=== PATIENT | female | born 1955 | race Hispanic/Latino ===

== ENCOUNTER 2018-08-26 11:51 | Inpatient (IN) | payer MEDICARE, BC ==
[2018-08-26] MEDS ORDERED: Sodium Chloride 0.9% 1,000 ML IV ONE (13:06)
--- NOTE | 2018-08-26 13:16 | C.PDOC ---
History Of Present Illness 63 year old female with PMH of HTN, diabetes presents to ED with complaint of worsening abdominal pain for the past 3 days. Pain is sharp and located on the right side of the abdomen, worst in RLQ. Patient has never experienced pain like this before. She took 3 ibuprofen for the pain with no improvement yesterday. Her last bowel movement was normal and non-bloody this morning. Tolerating PO per baseline. No recent travel. Patient denies trauma/injury, fever, chills, nausea, vomiting, diarrhea, urinary symptoms, back pain, chest pain, SOB, palpitations, or any other associated symptoms. Time Seen by Provider: 08/26/18 12:40 Chief Complaint (Nursing): Abdominal Pain History Per: Patient History/Exam Limitations: no limitations Onset/Duration Of Symptoms: Days (3), Worse Since Current Symptoms Are (Timing): Still Present Location Of Pain/Discomfort: RLQ Quality Of Discomfort: "Pain" Associated Symptoms: denies: Fever, Chills, Nausea, Vomiting, Diarrhea, Back Pain, Urinary Symptoms Past Medical History Reviewed: Historical Data, Nursing Documentation, Vital Signs Vital Signs: Last Vital Signs Temp 97.9 F 08/26/18 12:08 Pulse 74 08/26/18 12:08 Resp 18 08/26/18 12:08 BP 178/80 H 08/26/18 12:08 Pulse Ox 99 08/26/18 12:08 - Medical History PMH: Diabetes, HTN Surgical History: No Surg Hx Family History: States: Unknown Family Hx - Social History Hx Alcohol Use: No Hx Substance Use: No - Immunization History Hx Tetanus Toxoid Vaccination: No Hx Influenza Vaccination: No Hx Pneumococcal Vaccination: No Review Of Systems Constitutional: Negative for: Fever, Chills, Weakness Eyes: Negative for: Vision Change ENT: Negative for: Nose Congestion, Throat Pain Cardiovascular: Negative for: Chest Pain, Palpitations, Light Headedness Respiratory: Negative for: Cough, Shortness of Breath Gastrointestinal: Positive for: Abdominal Pain (right lower quadrant). Negative for: Nausea, Vomiting, Diarrhea, Hematochezia Genitourinary: Negative for: Dysuria, Frequency Musculoskeletal: Negative for: Back Pain Skin: Negative for: Rash, Bruising Neurological: Negative for: Weakness, Numbness, Headache, Dizziness Physical Exam - Physical Exam Appears: Non-toxic, In Acute Distress (secondary to pain), Other (moderate distress) Skin: Normal Color, Warm, Dry Head: Atraumatic, Normacephalic Eye(s): bilateral: Normal Inspection, PERRL, EOMI Oral Mucosa: Moist Neck: Normal ROM, Supple Chest: Symmetrical, No Deformity Cardiovascular: Rhythm Regular Respiratory: Normal Breath Sounds, No Accessory Muscle Use Gastrointestinal/Abdominal: Bowel Sounds, Soft, Tenderness (right lower bimal ndrant and suprapubic area ), No Distention, Guarding, Rebound, No Other (no bruising) Back: Normal Inspection, No CVA Tenderness, No Vertebral Tenderness, No Decreased ROM, No Paraspinal Tenderness Extremity: Normal ROM, Capillary Refill (<2 seconds) Extremity: Bilateral: Atraumatic, Normal Color And Temperature, Normal ROM Pulses: Left Radial: Normal, Right Radial: Normal Neurological/Psych: Oriented x3, Normal Speech, Normal Cognition, Normal Motor, Normal Sensation Gait: Steady ED Course And Treatment - Laboratory Results Result Diagrams: 08/26/18 13:34 08/26/18 13:34 ECG: Viewed By Me ECG Rhythm: Sinus Rhythm Interpretation Of ECG: Rate 65; NSR; Normal Intervals; No STEMI or other signs of acute ischemia Rate From EC O2 Sat by Pulse Oximetry: 99 (RA) Pulse Ox Interpretation: Normal - Radiology CXR: Viewed By Me CXR Interpretation: Yes: No Acute Disease - CT Scan/US CT Abdomen/Pelvis Other Rad Studies (CT/US): Interpreted By Me, Read By Radiologist CT/US Interpretation: Evelyn. Patient NameLIJEAN CLAUDE MARTIN / [id number], Hemali MD. Study [id number] 15:54:48Transcriber. Sex / AgeF / [id number] Rosa MD. [facility] WoodburyApproval [id number] 16:31:10. My Comment. Study Comments. Report. Date of service: 08/26/2018. PROCEDURE: CT Abdomen and Pelvis with contrast. HISTORY: Abdominal pain. COMPARISON: None available. TECHNIQUE: CT scan of the abdomen and pelvis was performed after administration of intravenous contrast. Oral contrast was not administered. Coronal and sagittal reformatted images were obtained. Contrast dose: 100 mL Visipaque 320. Radiation dose: Total exam DLP = 1183.06 mGy-cm. This CT exam was performed using one or more of the following dose reduction techniques: Automated exposure control, adjustment of the mA and/or kV according to patient size, and/or use of iterative reconstruction technique. FINDINGS: LOWER THORAX: There is depe ndent atelectasis in the lung bases. There are atherosclerotic calcifications in the coronary arteries and visualized descending aorta. LIVER: Normal in size with homogeneous enhancement. Diffuse fatty liver. No gross lesion or ductal dilatation. GALLBLADDER AND BILE DUCTS: Well distended. No calcified gallstones, wall thickening or pericholecystic fluid. PANCREAS: Normal in size with homogeneous enhancement. No gross lesion or ductal dilatation. SPLEEN: Normal in size and appearance. ADRENALS: No discrete nodule. KIDNEYS AND URETERS: Normal in size with homogeneous enhancement. No hydronephrosis. No solid mass. There is a 4 mm round calcification in the upper pole of the right kidney which may represent brunch artery aneurysm or nonspecific calcification. Tiny low-attenuation lesions in both kidneys are too small to characterize by CT criteria. There is a 2.0 cm simple cyst in the lower pole of the left kidney posteriorly. VASCULATURE: No aortic aneurysm. There are no aortic atherosclerotic calcifications or mural plaque present. BOWEL: Evaluation of the bowel is limited in the absence of oral contrast. The small bowel loops are normal in caliber. There is moderate amount of stool in the ascending and transverse colon. There are few left colonic diverticula without CT evidence for acute diverticulitis.. No bowel wall thickening or obstruction. APPENDIX: Normal appendix. PERITONEUM: No free fluid. No free air. LYMPH NODES: No enlarged lymph nodes. BLADDER: Grossly normal in appearance. REPRODUCTIVE: The uterus is normal in size. BONES: No acute fracture. There is diffuse bone demineralization and multilevel degenerative changes in the spine. OTHER FINDINGS: There is a large acute right rectus sheath hematoma measuring 17.6 x 11.4 x 10.1 cm. The hematoma extends posteriorly into the right hemipelvis. There is small hemorrhagic fluid and reactive changes in the right valarie pelvis and mild mass effect on the right lateral wall of the urinary bladder. IMPRESSION: 1. Large acute right rectus sheath hematoma with posterior extension into the right hemipelvis and mild mass effect on the right lateral urinary bladder wall. 2. Additional comments as described above. Critical findings were discussed with LINDA Tabares on 08/26/2018 at 4:20 p.m. Medical Decision Making Medical Decision Making: Plan: * Bloodwork * Lipase, Troponin * Coags * UA * EKG * CXR * Ct Abd/Pelvis with IV contrast * Transvaginal US Labwork reviewed, unremarkable EKG shows no acute changes CXR shows no active disease Patient reports decreased pain with medication 1630 CT results reviewed, shows large right sided rectus sheath hematoma. Pt and family made aware of findings, will seek admission and general surgery consult. TV US consistent with right hematoma; ovaries non visualized [address] Green, surgery oncall, who states he will come to evaluate patient in ED. 1745 Dr. Green examined patient at bedside, states he will take patient to OR tomorrow for drainage. Requests NPO after midnight. [address] Couch, medicine buckle and button maker, regarding patient. Agreed to admit patient to med/surg floor with diagnosis of rectus sheath hematoma. Patient made aware of change in disposition. Resting comfortably in stretcher with stable vital signs at this time. Disposition Counseled Patient/Family Regarding: Studies Performed, Diagnosis - Disposition Disposition: HOSPITALIZED Disposition Time: 18:00 Condition: STABLE - Clinical Impression Clinical Impression: Rectus sheath hematoma - PA / SHEET FINISHER / Resident Statement MD/DO has reviewed & agrees with the documentation as recorded. (Aga Don) - Scribe Statement The provider has reviewed the documentation as recorded by the Scribe (Aga Don) All medical record entries made by the Scribe were at my direction and personally dictated by me. I have reviewed the chart and agree that the record accurately reflects my personal performance of the history, physical exam, medical decision making, and the department course for this patient. I have also personally directed, reviewed, and agree with the discharge instructions and disposition.
[2018-08-26] MEDS ORDERED: Sodium Chloride 0.9% 1,000 ML ONE (13:21)
[2018-08-26 13:40] LABS: BASO # 0.1 K/uL (0.0-0.2); BASO % 1.1 % (0.0-2.0); EOS # 0.1 K/uL (0.0-0.7); EOS % 0.7 % (0.0-4.0); HEMOGLOBIN 14.8 g/dL (11.0-16.0); LYMPH # 1.5 K/uL (1.0-4.3); LYMPH % 16.8 % (20.0-40.0); MEAN CELL VOLUME 93.4 fL (81.0-99.0); MEAN CORPUSCULAR HEMOGLOBIN 31.8 pg (27.0-31.0); MEAN CORPUSCULAR HGB CONC 34.1 g/dL (33.0-37.0); MEAN PLATELET VOLUME 8.6 fL (7.2-11.7); MONO # 0.6 K/uL (0.0-0.8); MONO % 6.3 % (0.0-10.0); NEUT # 6.9 K/uL (1.8-7.0); NEUT % 75.1 % (50.0-75.0); RBC 4.64 Mil/uL (3.80-5.20); RED CELL DISTRIBUTION WIDTH 13.3 % (11.5-14.5); WHITE BLOOD COUNT 9.2 K/uL (4.8-10.8)
[2018-08-26 13:48] LABS: INR 1.1; PROTHROMBIN TIME 11.9 SECONDS (9.7-12.2)
[2018-08-26 13:53] LABS: ALB/GLOB RATIO 1.5 (1.0-2.1); ALBUMIN 4.5 g/dL (3.5-5.0); BLOOD UREA NITROGEN 20 mg/dL (7-17); GFR NON-AFRICAN AMERICAN > 60; LIPASE 206 U/L (23-300)
[2018-08-26 13:56] LABS: ALT/SGPT 31 U/L (9-52); AST/SGOT 45 U/L (14-36)
[2018-08-26 13:59] LABS: SQUAMOUS EPITHIAL < 1 /hpf (0-5); URINE BILIRUBIN NEGATIVE (NEGATIVE); URINE BLOOD NEGATIVE (NEGATIVE); URINE CLARITY Hazy (Clear); URINE COLOR Amber (YELLOW); URINE GLUCOSE (UA) 3+ mg/dL (Normal); URINE LEUKOCYTE ESTERASE NEG Leu/uL (Negative); URINE PROTEIN NEGATIVE (NEGATIVE); URINE UROBILINOGEN NORMAL mg/dL (0.2-1.0)
--- NOTE | 2018-08-26 16:34 | CT ---
Date of service: 08/26/2018 PROCEDURE: CT Abdomen and Pelvis with contrast HISTORY: Abdominal pain COMPARISON: None available. TECHNIQUE: CT scan of the abdomen and pelvis was performed after administration of intravenous contrast. Oral contrast was not administered. Coronal and sagittal reformatted images were obtained. Contrast dose: 100 mL Visipaque 320 Radiation dose: Total exam DLP = 1183.06 mGy-cm. This CT exam was performed using one or more of the following dose reduction techniques: Automated exposure control, adjustment of the mA and/or kV according to patient size, and/or use of iterative reconstruction technique. FINDINGS: LOWER THORAX: There is dependent atelectasis in the lung bases. There are atherosclerotic calcifications in the coronary arteries and visualized descending aorta. LIVER: Normal in size with homogeneous enhancement. Diffuse fatty liver. No gross lesion or ductal dilatation. GALLBLADDER AND BILE DUCTS: Well distended. No calcified gallstones, wall thickening or pericholecystic fluid. PANCREAS: Normal in size with homogeneous enhancement. No gross lesion or ductal dilatation. SPLEEN: Normal in size and appearance. ADRENALS: No discrete nodule. KIDNEYS AND URETERS: Normal in size with homogeneous enhancement. No hydronephrosis. No solid mass. There is a 4 mm round calcification in the upper pole of the right kidney which may represent brunch artery aneurysm or nonspecific calcification. Tiny low-attenuation lesions in both kidneys are too small to characterize by CT criteria. There is a 2.0 cm simple cyst in the lower pole of the left kidney posteriorly. VASCULATURE: No aortic aneurysm. There are no aortic atherosclerotic calcifications or mural plaque present. BOWEL: Evaluation of the bowel is limited in the absence of oral contrast. The small bowel loops are normal in caliber. There is moderate amount of stool in the ascending and transverse colon. There are few left colonic diverticula without CT evidence for acute diverticulitis.. No bowel wall thickening or obstruction. APPENDIX: Normal appendix. PERITONEUM: No free fluid. No free air. LYMPH NODES: No enlarged lymph nodes. BLADDER: Grossly normal in appearance. REPRODUCTIVE: The uterus is normal in size. BONES: No acute fracture. There is diffuse bone demineralization and multilevel degenerative changes in the spine. OTHER FINDINGS: There is a large acute right rectus sheath hematoma measuring 17.6 x 11.4 x 10.1 cm. The hematoma extends posteriorly into the right hemipelvis. There is small hemorrhagic fluid and reactive changes in the right valarie pelvis and mild mass effect on the right lateral wall of the urinary bladder. IMPRESSION: 1. Large acute right rectus sheath hematoma with posterior extension into the right hemipelvis and mild mass effect on the right lateral urinary bladder wall. 2. Additional comments as described above. Critical findings were discussed with LINDA Tabares on 08/26/2018 at 4:20 p.m.
--- NOTE | 2018-08-26 17:01 | US ---
Date of service: 08/26/2018 HISTORY: RLQ pain, r/o torsion COMPARISON: None available. TECHNIQUE: Transabdominal and transvaginal pelvic ultrasound was performed. FINDINGS: UTERUS: Measures 7.1 x 3.4 x 4.0 cm. Anteverted, normal in size and appearance. No fibroid or other mass lesion seen. ENDOMETRIUM: Measures 3.4 mm in diameter. Unremarkable. CERVIX: No cervical abnormality identified. RIGHT OVARY: Not visualized. LEFT OVARY: Not visualized. FREE FLUID: There is small amount of free fluid in the cul de sac. OTHER FINDINGS: There is a large heterogeneous predominantly hyperechoic mass in the right adnexa. IMPRESSION: No evidence for fibroid uterus. Both ovaries are not visualized. Large heterogeneous mass in the right adnexa which in correlation with the CT scan is compatible with right rectus sheath hematoma with extension into the right hemipelvis.
--- NOTE | 2018-08-26 18:23 | RAD ---
Date of service: 08/26/2018 HISTORY: abdominal pain COMPARISON: No prior. FINDINGS: LUNGS: The lungs are well inflated and clear. PLEURA: No pleural effusions or pneumothorax. CARDIOVASCULAR: The heart is normal in size. No aortic atherosclerotic calcifications present. OSSEOUS STRUCTURES: Within normal limits for the patient's age. VISUALIZED UPPER ABDOMEN: Normal. OTHER FINDINGS: None. IMPRESSION: No active pulmonary disease.
[2018-08-26] MEDS: Sodium Chloride 0.9% 1,000 ML IV SCH (19:29)
[2018-08-27] MEDS: Sodium Chloride 0.9% 1,000 ML IV SCH ×3 (07:41→21:44)
[2018-08-27] MEDS: Vitamin B Complex/Vitamin C Tab PO SCH (09:24)
[2018-08-27] MEDS: Multiple Vitamins Tab PO SCH (09:24)
[2018-08-27] MEDS: Calcium-Vit D 500 mg-200 Units Tab UD PO SCH (09:24)
[2018-08-27] MEDS ORDERED: Metoprolol Succinate 100 mg XL Tab PO SCH (10:00)
[2018-08-27] MEDS ORDERED: Pneumococcal 23-Valent Vaccine IM ONE (11:23)
[2018-08-27] MEDS ORDERED: Midazolam 2 MG/2 ML VIAL ONE (14:59)
[2018-08-27] MEDS ORDERED: Propofol 10 mg/ml Inj (20 ML) ONE (14:59)
[2018-08-27] MEDS ORDERED: ceFAZolin 1 gm in NS 2 GM/200 ML BAG IVPB ONE (15:16)
[2018-08-27] MEDS ORDERED: ePHEDrine 50 mg/ml Inj ONE (15:25)
[2018-08-27] MEDS ORDERED: Oxycodone/Acetaminophen 5/325 mg Tab PO PRN (15:59)
[2018-08-27] MEDS ORDERED: HYDROmorphone 0.5 mg/0.5 ml ISec IVP PRN (16:26)
[2018-08-27] MEDS ORDERED: HYDROmorphone 0.5 mg/0.5 ml ISec ONE (16:33)
[2018-08-27] MEDS: ceFAZolin 1 GM in Sodium Chloride 0.9% 100 ML IVPB SCH (17:26)
--- NOTE | 2018-08-27 20:51 | CP.PCM.HP ---
Present on Admission - Present on Admission Any Indicators Present on Admission: No Past Patient History - Past Medical History & Family History Past Medical History?: Yes - Past Social History Smoking Status: Unknown If Ever Smoked - CARDIAC Hx Hypertension: Yes - ENDOCRINE/METABOLIC Hx Diabetes Mellitus Type 2: Yes - MUSCULOSKELETAL/RHEUMATOLOGICAL Hx Falls: No - PSYCHIATRIC Hx Substance Use: No - SURGICAL HISTORY Hx Surgeries: No - ANESTHESIA Hx Anesthesia: No Meds Allergies/Adverse Reactions: Allergies Allergy/AdvReac Type Severity Reaction Status Date / Time No Known Allergies Allergy Verified 08/26/18 12:11 Results - Vital Signs Recent Vital Signs: Last Vital Signs Temp 97.9 F 08/27/18 17:11 Pulse 97 H 08/27/18 17:11 Resp 18 08/27/18 17:11 BP 127/70 08/27/18 17:11 Pulse Ox 95 08/27/18 17:11 - Labs Result Diagrams: 08/26/18 13:34 08/26/18 13:34 Labs: Laboratory Results - last 24 hr 08/26/18 08/26/18 08/27/18 20:02 21:15 07:11 POC Glucose (mg/dL) 146 H 129 H Blood Type A POSITIVE Antibody Screen Negative 08/27/18 08/27/18 11:15 16:44 POC Glucose (mg/dL) 126 H 111 H Blood Type Antibody Screen
[2018-08-27] MEDS: Metoprolol Succinate 100 mg XL Tab PO SCH (21:34)
--- NOTE | 2018-08-27 21:49 | CARD ---
APPROVED REPORT Date of service: 08/26/2018 EKG Measurement Heart [id number] <Conclusion> Normal sinus rhythm Minimal voltage criteria for LVH, may be normal variant Borderline ECG
[2018-08-28] MEDS: ceFAZolin 1 GM in Sodium Chloride 0.9% 100 ML IVPB SCH ×3 (01:26→16:27)
--- NOTE | 2018-08-28 02:53 | OP ---
PROCEDURE DATE: 08/27/2018 PREOPERATIVE DIAGNOSIS: Right rectus sheath and retroperitoneal hematoma. POSTOPERATIVE DIAGNOSIS: Right rectus sheath and retroperitoneal hematoma. PROCEDURE PERFORMED: Drainage of right retroperitoneal and pelvic hematoma. SURGEON: Omar Green MD. ANESTHESIA: General. BLOOD LOSS: 30 mL. POSTOPERATIVE CONDITION: Stable. INDICATIONS FOR SURGERY: This is a 63-year-old female admitted with abdominal and pelvic pain, found to have a large retroperitoneal and pelvic hematoma which was pressing on her bladder and in need of operative drainage. She is now brought to the operating room. DESCRIPTION OF PROCEDURE: The patient taken to the operating room. General anesthesia was administered. Lower abdomen was prepped and draped. A transverse incision was made in the right lower quadrant through a previous incision. The rectus sheath was identified, opened and a large hematoma was entered and drained. It was noted to extend deep into the pelvis with an intraperitoneal portion. The wound was irrigated with copious amounts of saline solution. The bleeding blood vessel was repaired. A partial tissue flap closure was performed at the periphery and the central portion of the wound was packed open with wet saline gauze. This included gauze into the pelvic space. The plan was to take the patient back to the operating room tomorrow for a washout and possible drain placement. The patient tolerated the procedure well, returned to recovery room in stable condition. Omar Green MD
--- NOTE | 2018-08-28 03:01 | HP ---
CHIEF COMPLAINT: Right lower quadrant abdominal pain. HISTORY OF PRESENT ILLNESS: This is a 63-year-old white female with history of diabetes, hypertension, and hyperlipidemia. She is compliant with diet, medication, and followup, and the patient developed abdominal pain three days ago, which is mostly in the right lower quadrant. According to the patient, pain has been getting worse over the last three days, mostly in the right lower quadrant, and the patient's pain is worse. It is more intense. She took three ibuprofen on the day of admission with no improvement, and she had a normal bowel movement which has no blood, no fever, no chills, no nausea, vomiting, or diarrhea. She denies any dysuria, hematuria, or pyuria. She has headache. She denied any fever or chills. There is no history of cough or sore throat. She is vague, but she said she had a fall from a chair, but she does not remember any injuries. There is no history of rectal bleeding, hematemesis, melena, or fever. ALLERGIES: UNKNOWN ALLERGIES. CURRENT MEDICATIONS: At home are Toprol-XL, doxepin, multivitamin, calcium, aspirin, metformin, Hyzaar, and Invokana. SOCIAL HISTORY: She is nonsmoker, non-ETOH user. PHYSICAL EXAMINATION: GENERAL: An elderly female in distress with right lower quadrant pain. VITAL SIGNS: Blood pressure 136/58, pulse 92, respiratory rate 18, and temperature 98.8. SKIN: No rashes. No bruises. No purpura. HEENT: Atraumatic and normocephalic. Negative pallor. Negative jaundice. Extraocular movements are intact. NECK: Supple. No JVD. No lymph nodes. No thyromegaly. No carotid bruit. CHEST: Chest wall, bilateral symmetrical expansion. No tenderness. No deformity. LUNGS: Clear. No rales. No rhonchi. CARDIOVASCULAR SYSTEM: PMI not localized. S1 and S2, regular. No heave. No thrill. ABDOMEN: Soft, nontender. There is right lower quadrant mass. RECTAL AND PELVIC: Deferred. EXTREMITIES: No clubbing, cyanosis, or edema. CENTRAL NERVOUS SYSTEM: Awake, alert, and oriented x3. ASSESSMENT: 1. Right lower quadrant abdominal pain which turned out to be a hematoma. Etiology is unclear. She is on aspirin. 2. Hypertension, poorly controlled. 3. Diabetes. PLAN: Admit. Surgical evaluation. Monitor the patient. Jr Couch MD
[2018-08-28] MEDS: Vitamin B Complex/Vitamin C Tab PO SCH (09:10)
[2018-08-28] MEDS: Multiple Vitamins Tab PO SCH (09:11)
[2018-08-28] MEDS: Calcium-Vit D 500 mg-200 Units Tab UD PO SCH (09:12)
[2018-08-28] MEDS ORDERED: Pneumococcal 23-Valent Vaccine IM ONE (10:00)
[2018-08-28] MEDS ORDERED: Influenza Vaccine 60 mcg/0.5 mL SYR (4YR UP) IM ONE (10:00)
[2018-08-28] MEDS: Sodium Chloride 0.9% 1,000 ML IV SCH ×3 (10:40→23:44)
[2018-08-28] MEDS ORDERED: Propofol 10 mg/ml Inj (20 ML) ONE (15:55)
[2018-08-28] MEDS ORDERED: ceFAZolin 1 gm in NS 1 GM/100 ML BAG IVPB ONE (16:28)
[2018-08-28] MEDS: Metoprolol Succinate 100 mg XL Tab PO SCH (21:23)
[2018-08-28] MEDS: DOXEPIN 6 MG PO SCH (21:24)
--- NOTE | 2018-08-28 22:41 | CP.PCM.PN ---
Subjective - Date & Time of Evaluation Date of Evaluation: 08/28/18 Time of Evaluation: 12:00 - Subjective Subjective: dictated Objective - Vital Signs/Intake and Output Vital Signs (last 24 hours): Temp Pulse Resp BP Pulse Ox 98.5 F 94 H 17 134/59 L 95 08/28/18 17:45 08/28/18 17:45 08/28/18 17:45 08/28/18 17:45 08/28/18 17:45 Intake and Output: 08/28/18 08/29/18 18:59 06:59 Intake Total 1600 Output Total 700 Balance 900 - Medications Medications: Current Medications Ascorbic Acid (Vitamin C 500 Mg Tab) 500 mg PO BID [facility] Last Admin: 08/28/18 21:23 Dose: Not Given Aspirin (Aspirin Chewable) 81 mg PO DAILY [facility] Last Admin: 08/28/18 09:10 Dose: Not Given Calcium/Vitamin D (Oyster Shell Calcium/Vitamin D 500 Mg-200 Iu) 1 tab PO DAILY [facility] Last Admin: 08/28/18 09:12 Dose: Not Given Docusate Sodium (Colace) 100 mg PO BID [facility] Last Admin: 08/28/18 21:22 Dose: Not Given Heparin Sodium (Porcine) (Heparin) 5,000 units SC Q12 [facility] Last Admin: 08/28/18 21:26 Dose: 5,000 units Home Med (Patient's Own Medication) 1 tab PO HS [facility] Last Admin: 08/28/18 21:24 Dose: 1 tab Hydromorphone HCl (Dilaudid) 0.5 mg IVP Q15M PRN PRN Reason: Pain, severe (8-10) Last Admin: 08/27/18 16:33 Dose: 0.5 mg Sodium Chloride (Sodium Chloride 0.9%) 1,000 mls @ 100 mls/hr IV .Q10H [facility] Last Admin: 08/28/18 10:40 Dose: 100 mls/hr Cefazolin Sodium 1 gm/ Sodium (Chloride) 100 mls @ 100 mls/hr IVPB Q8H [facility]; Protocol Last Admin: 08/28/18 16:27 Dose: 100 mls Lactated Ringer's (Lactated Ringer's) 1,000 mls @ 100 mls/hr IV .Q10H [facility] Losartan Potassium (Cozaar) 100 mg PO DAILY [facility] Last Admin: 08/28/18 09:13 Dose: Not Given Metformin HCl (Glucophage) 1,000 mg PO BIDCC [facility] Last Admin: 08/28/18 21:22 Dose: Not Given Metoprolol Succinate (Toprol Xl) 100 mg PO HS [facility] Last Admin: 08/28/18 21:23 Dose: 100 mg Morphine Sulfate (Morphine) 2 mg IVP Q4 PRN PRN Reason: Pain, moderate (4-7) Last Admin: 08/28/18 10:50 Dose: 2 mg Multivitamins (Hexavitamin) 1 tab PO DAILY [facility] Last Admin: 08/28/18 09:11 Dose: Not Given Oxycodone/Acetaminophen (Percocet 5/325 Mg Tab) 2 tab PO Q4H PRN PRN Reason: pain Stop: 08/30/18 16:00 Rosuvastatin Calcium (Crestor) 10 mg PO HS [facility] Last Admin: 08/28/18 21:23 Dose: 10 mg Vitamin B Complex/Vitamin C (Berocca) 1 tab PO DAILY [facility] Last Admin: 08/28/18 09:10 Dose: Not Given - Labs Labs: 08/26/18 13:34 08/26/18 13:34 PT 11.9 SECONDS (9.7-12.2) 08/26/18 13:34 INR 1.1 08/26/18 13:34 APTT 29 SECONDS (21-34) 08/26/18 13:34
[2018-08-28] MEDS: Lactated Ringer's 1,000 ML IV SCH (23:45)
--- NOTE | 2018-08-29 01:29 | OP ---
PROCEDURE DATE: 08/28/2018 PREOPERATIVE DIAGNOSIS: Extensive retroperitoneal hematoma. POSTOPERATIVE DIAGNOSIS: Extensive retroperitoneal hematoma. PROCEDURE PERFORMED: Re-drainage of retroperitoneal hematoma with debridement, repair of blood vessel, pulse irrigation and partial advancement flap closure. SURGEON: Omar Green MD ANESTHESIA: General. BLOOD LOSS: 100 mL. POSTOPERATIVE CONDITION: Stable. INDICATION FOR SURGERY: A 63-year-old female who had an extensive right retroperitoneal hematoma which was causing severe pain, pressing on the patient's bladder and was deemed necessary to be drained in open fashion. She underwent open drainage yesterday with a packing. Today, she was taken back to the operating room for staged procedure, change of the packing, pulse irrigation and debridement. DESCRIPTION OF PROCEDURE: The patient was taken to the operating room. General anesthesia was administered. The abdomen was prepped and draped. After the previous packing was removed, the wound was pulse irrigated and debrided. Bleeding was controlled using the Bovie. Larger blood vessels were repaired. A partial tissue flap closure was performed at the periphery. Central portion of wound was packed with wet saline gauze and dressed sterilely. The patient tolerated the procedure well and returned to recovery room in stable condition. Omar Green MD
[2018-08-29] MEDS: ceFAZolin 1 GM in Sodium Chloride 0.9% 100 ML IVPB SCH ×3 (04:01→16:44)
[2018-08-29] MEDS: Lactated Ringer's 1,000 ML IV SCH ×5 (04:02→23:50)
--- NOTE | 2018-08-29 05:27 | PN ---
DATE: 08/28/2018 SUBJECTIVE: The patient is afebrile. She is status post OR. No chest pain. No nausea or vomiting. Some postop pain, she is for OR again in a.m. PHYSICAL EXAMINATION: VITAL SIGNS: Blood pressure is 134/59, pulse 94, respiratory rate 17, temperature 98.5. LUNGS: air entry. CARDIOVASCULAR SYSTEM: S1 and S2, regular. ABDOMEN: Soft. ASSESSMENT: Right lower quadrant hematoma. PLAN: OR in a.m. Monitor the patient. Jr Couch MD
[2018-08-29 07:04] LABS: BASO % 0.5 % (0.0-2.0); EOS # 0.2 K/uL (0.0-0.7); EOS % 2.2 % (0.0-4.0); LYMPH # 1.5 K/uL (1.0-4.3); LYMPH % 21.3 % (20.0-40.0); MEAN CORPUSCULAR HEMOGLOBIN 31.3 pg (27.0-31.0); MEAN CORPUSCULAR HGB CONC 33.3 g/dL (33.0-37.0); MONO # 0.8 K/uL (0.0-0.8); MONO % 10.5 % (0.0-10.0); NEUT # 4.7 K/uL (1.8-7.0); NEUT % 65.5 % (50.0-75.0); RBC 3.4 Mil/uL (3.80-5.20); RED CELL DISTRIBUTION WIDTH 13.2 % (11.5-14.5); WHITE BLOOD COUNT 7.1 K/uL (4.8-10.8)
[2018-08-29 07:20] LABS: ALB/GLOB RATIO 1.2 (1.0-2.1); ALBUMIN 3.1 g/dL (3.5-5.0); ALT/SGPT 23 U/L (9-52); AST/SGOT 25 U/L (14-36); BLOOD UREA NITROGEN 11 mg/dL (7-17); CALCIUM 8.1 mg/dl (8.6-10.4); GFR NON-AFRICAN AMERICAN > 60
[2018-08-29 07:29] LABS: HEMOGLOBIN 10.6 g/dL (11.0-16.0)
[2018-08-29] MEDS: Vitamin B Complex/Vitamin C Tab PO SCH (09:05)
[2018-08-29] MEDS: Calcium-Vit D 500 mg-200 Units Tab UD PO SCH (09:06)
[2018-08-29] MEDS: Multiple Vitamins Tab PO SCH (09:42)
[2018-08-29] MEDS ORDERED: Propofol 10 mg/ml Inj (20 ML) ONE (13:48)
[2018-08-29] MEDS ORDERED: Midazolam 2 MG/2 ML VIAL ONE (13:48)
[2018-08-29] MEDS ORDERED: HYDROmorphone 0.5 mg/0.5 ml ISec IVP PRN (14:58)
--- NOTE | 2018-08-29 20:47 | CP.PCM.PN ---
Subjective - Date & Time of Evaluation Date of Evaluation: 08/29/18 Time of Evaluation: 07:20 - Subjective Subjective: dictated Objective - Vital Signs/Intake and Output Vital Signs (last 24 hours): Temp Pulse Resp BP Pulse Ox 99.2 F 78 17 135/59 L 98 08/29/18 15:40 08/29/18 15:40 08/29/18 15:40 08/29/18 15:40 08/29/18 15:40 Intake and Output: 08/29/18 08/30/18 18:59 06:59 Intake Total 700 Output Total 100 Balance 600 - Medications Medications: Current Medications Ascorbic Acid (Vitamin C 500 Mg Tab) 500 mg PO BID [facility] Last Admin: 08/29/18 18:02 Dose: 500 mg Aspirin (Aspirin Chewable) 81 mg PO DAILY [facility] Last Admin: 08/29/18 09:05 Dose: Not Given Calcium/Vitamin D (Oyster Shell Calcium/Vitamin D 500 Mg-200 Iu) 1 tab PO DAILY [facility] Last Admin: 08/29/18 09:06 Dose: Not Given Docusate Sodium (Colace) 100 mg PO BID [facility] Last Admin: 08/29/18 18:02 Dose: 100 mg Heparin Sodium (Porcine) (Heparin) 5,000 units SC Q12 [facility] Last Admin: 08/29/18 09:06 Dose: Not Given Home Med (Patient's Own Medication) 1 tab PO HS [facility] Last Admin: 08/28/18 21:24 Dose: 1 tab Hydromorphone HCl (Dilaudid) 0.5 mg IVP Q15M PRN PRN Reason: Pain, severe (8-10) Last Admin: 08/27/18 16:33 Dose: 0.5 mg Cefazolin Sodium 1 gm/ Sodium (Chloride) 100 mls @ 100 mls/hr IVPB Q8H [facility]; Protocol Last Admin: 08/29/18 16:44 Dose: 100 mls/hr Lactated Ringer's (Lactated Ringer's) 1,000 mls @ 100 mls/hr IV .Q10H [facility] Last Admin: 08/29/18 13:00 Dose: Not Given Lactated Ringer's (Lactated Ringer's) 1,000 mls @ 150 mls/hr IV .Q6H40M [facility] Last Admin: 08/29/18 16:40 Dose: 150 mls/hr Losartan Potassium (Cozaar) 100 mg PO DAILY [facility] Last Admin: 08/29/18 09:07 Dose: Not Given Metformin HCl (Glucophage) 1,000 mg PO BIDCC [facility] Last Admin: 08/29/18 18:02 Dose: 1,000 mg Metoprolol Succinate (Toprol Xl) 100 mg PO HS [facility] Last Admin: 08/28/18 21:23 Dose: 100 mg Morphine Sulfate (Morphine) 2 mg IVP Q4 PRN PRN Reason: Pain, moderate (4-7) Last Admin: 08/29/18 10:43 Dose: 2 mg Multivitamins (Hexavitamin) 1 tab PO DAILY [facility] Last Admin: 08/29/18 09:42 Dose: Not Given Oxycodone/Acetaminophen (Percocet 5/325 Mg Tab) 2 tab PO Q4H PRN PRN Reason: pain Stop: 08/30/18 16:00 Rosuvastatin Calcium (Crestor) 10 mg PO [facility] Last Admin: 08/28/18 21:23 Dose: 10 mg Vitamin B Complex/Vitamin C (Berocca) 1 tab PO DAILY [facility] Last Admin: 08/29/18 09:05 Dose: Not Given - Labs Labs: 08/29/18 06:51 08/29/18 06:51 PT 11.9 SECONDS (9.7-12.2) 08/26/18 13:34 INR 1.1 08/26/18 13:34 APTT 29 SECONDS (21-34) 08/26/18 13:34
[2018-08-29] MEDS: Metoprolol Succinate 100 mg XL Tab PO SCH (21:24)
[2018-08-29] MEDS: DOXEPIN 6 MG PO SCH (21:25)
--- NOTE | 2018-08-30 00:02 | PN ---
DATE: 08/29/2018 SUBJECTIVE: The patient is feeling better. She has insomnia. No shortness of breath. No chest pain. Status post OR. No cough. No fever. PHYSICAL EXAMINATION: VITAL SIGNS: Afebrile. Blood pressure 135/59, pulse 78, respiratory rate 17, and temperature 99.2. LUNGS: Clear. CARDIOVASCULAR SYSTEM: S1 and S2. Regular. ABDOMEN: Postop. ASSESSMENT: 1. Right lower quadrant hematoma, status post evacuation. 2. Hypertension. 3. Diabetes. 4. Hyperlipidemia. PLAN: Continue postop care. Monitor the patient. Jr Couch MD
[2018-08-30] MEDS: ceFAZolin 1 GM in Sodium Chloride 0.9% 100 ML IVPB SCH ×3 (01:52→17:23)
[2018-08-30] MEDS: Lactated Ringer's 1,000 ML IV SCH (05:06)
[2018-08-30] MEDS ORDERED: Propofol 10 mg/ml Inj (20 ML) ONE (08:47)
[2018-08-30] MEDS ORDERED: Bacitracin Ointment 30 GM TUBE ONE (09:22)
[2018-08-30] MEDS ORDERED: Lactated Ringer's 1,000 ML IV SCH (09:45)
[2018-08-30] MEDS: Calcium-Vit D 500 mg-200 Units Tab UD PO SCH (10:56)
[2018-08-30] MEDS: Multiple Vitamins Tab PO SCH (10:56)
[2018-08-30] MEDS: Vitamin B Complex/Vitamin C Tab PO SCH (10:56)
[2018-08-30 16:11] VITALS: RESP 20
[2018-08-30 16:31] LABS: BASO % 0.4 % (0.0-2.0); EOS # 0.1 K/uL (0.0-0.7); EOS % 1.7 % (0.0-4.0); HEMOGLOBIN 11.1 g/dL (11.0-16.0); LYMPH # 1.3 K/uL (1.0-4.3); LYMPH % 16.3 % (20.0-40.0); MEAN CELL VOLUME 93.5 fL (81.0-99.0); MEAN CORPUSCULAR HEMOGLOBIN 31.1 pg (27.0-31.0); MEAN CORPUSCULAR HGB CONC 33.3 g/dL (33.0-37.0); MEAN PLATELET VOLUME 7.7 fL (7.2-11.7); MONO # 0.8 K/uL (0.0-0.8); MONO % 10.1 % (0.0-10.0); NEUT # 5.9 K/uL (1.8-7.0); NEUT % 71.5 % (50.0-75.0); RBC 3.57 Mil/uL (3.80-5.20); RED CELL DISTRIBUTION WIDTH 13.2 % (11.5-14.5); WHITE BLOOD COUNT 8.2 K/uL (4.8-10.8)
--- NOTE | 2018-08-30 21:33 | CP.PCM.PN ---
Subjective - Date & Time of Evaluation Date of Evaluation: 08/30/18 Time of Evaluation: 07:20 - Subjective Subjective: dictated Objective - Vital Signs/Intake and Output Vital Signs (last 24 hours): Temp Pulse Resp BP Pulse Ox 98.3 F 96 H 20 129/73 95 08/30/18 16:00 08/30/18 16:00 08/30/18 16:00 08/30/18 16:00 08/30/18 16:00 Intake and Output: 08/30/18 08/31/18 18:59 06:59 Intake Total 850 Output Total 20 Balance 830 - Medications Medications: Current Medications Ascorbic Acid (Vitamin C 500 Mg Tab) 500 mg PO BID [facility] Last Admin: 08/30/18 17:47 Dose: 500 mg Aspirin (Aspirin Chewable) 81 mg PO DAILY [facility] Last Admin: 08/30/18 10:57 Dose: Not Given Calcium/Vitamin D (Oyster Shell Calcium/Vitamin D 500 Mg-200 Iu) 1 tab PO DAILY [facility] Last Admin: 08/30/18 10:56 Dose: 1 tab Docusate Sodium (Colace) 100 mg PO BID [facility] Last Admin: 08/30/18 17:24 Dose: 100 mg Home Med (Patient's Own Medication) 1 tab PO [facility] Last Admin: 08/29/18 21:25 Dose: 1 tab Cefazolin Sodium 1 gm/ Sodium (Chloride) 100 mls @ 100 mls/hr IVPB Q8H [facility]; Protocol Last Admin: 08/30/18 17:23 Dose: 100 mls/hr Losartan Potassium (Cozaar) 100 mg PO DAILY [facility] Last Admin: 08/30/18 10:56 Dose: 100 mg [facility] Last Admin: 08/30/18 17:23 Dose: 1,000 mg Metoprolol Succinate (Toprol Xl) 100 mg PO [facility] Last Admin: 08/29/18 21:24 Dose: 100 mg Morphine Sulfate (Morphine) 2 mg IVP Q4 PRN PRN Reason: Pain, moderate (4-7) Last Admin: 08/30/18 20:33 Dose: 2 mg Multivitamins (Hexavitamin) 1 tab PO DAILY [facility] Last Admin: 08/30/18 10:56 Dose: 1 tab Rosuvastatin Calcium (Crestor) 10 mg PO HS [facility] Last Admin: 08/29/18 21:24 Dose: 10 mg Vitamin B Complex/Vitamin C (Berocca) 1 tab PO DAILY [facility] Last Admin: 08/30/18 10:56 Dose: 1 tab - Labs Labs: 08/30/18 16:27 08/29/18 06:51 PT 11.9 SECONDS (9.7-12.2) 08/26/18 13:34 INR 1.1 08/26/18 13:34 APTT 29 SECONDS (21-34) 08/26/18 13:34
[2018-08-30] MEDS: Metoprolol Succinate 100 mg XL Tab PO SCH (21:36)
[2018-08-30] MEDS: DOXEPIN 6 MG PO SCH (21:36)
--- NOTE | 2018-08-31 00:24 | PN ---
DATE: 08/30/2018 SUBJECTIVE: The patient feels better. Status post OR. She is sitting in the bed. Case discussed with Dr. Green in detail. She is status post lavage. The patient has a drain in the right lower quadrant. On Saturday, she is for removal of the drain. PHYSICAL EXAMINATION: VITAL SIGNS: Blood pressure 129/73, pulse 96, respiratory rate 20, temperature 98.3. LUNGS: Clear. ABDOMEN: Soft. CENTRAL NERVOUS SYSTEM: Awake, alert and oriented x3. ASSESSMENT: 1. Right lower quadrant hematoma. 2. Diabetes. 3. Hypertension. 4. Hyperlipidemia. PLAN: Continue current medications. The patient is for evaluation and discharge on Saturday. Jr Couch MD
[2018-08-31] MEDS: ceFAZolin 1 GM in Sodium Chloride 0.9% 100 ML IVPB SCH ×3 (01:33→16:30)
[2018-08-31] MEDS: Vitamin B Complex/Vitamin C Tab PO SCH (09:50)
[2018-08-31] MEDS: Multiple Vitamins Tab PO SCH (09:50)
[2018-08-31] MEDS: Calcium-Vit D 500 mg-200 Units Tab UD PO SCH (09:50)
[2018-08-31] MEDS: Metoprolol Succinate 100 mg XL Tab PO SCH (21:36)
[2018-08-31] MEDS: DOXEPIN 6 MG PO SCH (21:36)
--- NOTE | 2018-08-31 22:56 | CP.PCM.PN ---
Subjective - Date & Time of Evaluation Date of Evaluation: 08/31/18 Time of Evaluation: 10:30 - Subjective Subjective: dictated Objective - Vital Signs/Intake and Output Vital Signs (last 24 hours): Temp Pulse Resp BP Pulse Ox 97.9 F 80 20 137/73 95 08/31/18 15:00 08/31/18 15:00 08/31/18 15:00 08/31/18 15:00 08/31/18 15:00 Intake and Output: 08/31/18 09/01/18 18:59 06:59 Intake Total 800 Output Total 20 Balance 780 - Medications Medications: Current Medications Ascorbic Acid (Vitamin C 500 Mg Tab) 500 mg PO BID [facility] Last Admin: 08/31/18 17:11 Dose: 500 mg Aspirin (Aspirin Chewable) 81 mg PO DAILY [facility] Last Admin: 08/31/18 09:50 Dose: 81 mg Calcium/Vitamin D (Oyster Shell Calcium/Vitamin D 500 Mg-200 Iu) 1 tab PO DAILY [facility] Last Admin: 08/31/18 09:50 Dose: 1 tab Docusate Sodium (Colace) 100 mg PO BID [facility] Last Admin: 08/31/18 17:14 Dose: Not Given Home Med (Patient's Own Medication) 1 tab PO HS [facility] Last Admin: 08/31/18 21:36 Dose: 1 tab Cefazolin Sodium 1 gm/ Sodium (Chloride) 100 mls @ 100 mls/hr IVPB Q8H [facility]; Protocol Last Admin: 08/31/18 16:30 Dose: 100 mls/hr Losartan Potassium (Cozaar) 100 mg PO DAILY [facility] Last Admin: 08/31/18 09:50 Dose: 100 mg Metformin HCl (Glucophage) 1,000 mg PO BIDCC [facility] Last Admin: 08/31/18 16:29 Dose: 1,000 mg Metoprolol Succinate (Toprol Xl) 100 mg PO [facility] Last Admin: 08/31/18 21:36 Dose: 100 mg Morphine Sulfate (Morphine) 2 mg IVP Q4 PRN PRN Reason: Pain, moderate (4-7) Last Admin: 08/31/18 21:40 Dose: 2 mg Multivitamins (Hexavitamin) 1 tab PO DAILY [facility] Last Admin: 08/31/18 09:50 Dose: 1 tab Rosuvastatin Calcium (Crestor) 10 mg PO [facility] Last Admin: 08/31/18 21:36 Dose: 10 mg Vitamin B Complex/Vitamin C (Berocca) 1 tab PO DAILY [facility] Last Admin: 08/31/18 09:50 Dose: 1 tab - Labs Labs: 08/30/18 16:27 08/29/18 06:51 PT 11.9 SECONDS (9.7-12.2) 08/26/18 13:34 INR 1.1 08/26/18 13:34 APTT 29 SECONDS (21-34) 08/26/18 13:34
[2018-09-01] MEDS: ceFAZolin 1 GM in Sodium Chloride 0.9% 100 ML IVPB SCH ×2 (00:03→09:40)
--- NOTE | 2018-09-01 04:20 | PN ---
DATE: 08/31/2018 SUBJECTIVE: The patient is afebrile. Decreased right lower quadrant pain. Has drain with some drainage. PHYSICAL EXAMINATION: VITAL SIGNS: Blood pressure 137/73, pulse 80, respiratory rate 20, temperature 97.9. LUNGS: Clear. CARDIOVASCULAR SYSTEM: S1, S2. Regular. ABDOMEN: Soft. Postop. ASSESSMENT: 1. Right lower quadrant hematoma, status post evacuation. 2. Diabetes. 3. Hypertension. PLAN: Medical management. Monitor the patient. Jr Couch MD
--- NOTE | 2018-09-01 06:57 | OP ---
PROCEDURE DATE: 08/30/2018 PREOPERATIVE DIAGNOSIS: Pelvic hematoma. POSTOPERATIVE DIAGNOSIS: Pelvic hematoma. PROCEDURE PERFORMED: Re-drainage of pelvic hematoma with debridement and advancement flap closure. SURGEON: Omar Green MD. TYPE OF ANESTHESIA: General endotracheal. ESTIMATED BLOOD LOSS: 30 mL. POSTOP CONDITION: Stable. INDICATION FOR SURGERY: This is a 63-year-old female who presented with a large pelvic hematoma. She is status post initial drainage and postop washout of the area and repacking. She is now taken back for staged re-drainage and closure. DESCRIPTION OF PROCEDURE: The patient was taken to the operating room,general anesthesia was administered. The pelvic packing was removed and the pelvic area was prepped and draped. Pulse irrigation was used to further debride and irrigate all the remaining clots out of the pelvis. Bleeding was controlled using the Bovie and larger blood vessels were repaired. A drain was left in the pelvic space and fascia was closed with interrupted heavy Vicryl. The advancement flaps were raised, counter incisions were made and advancement flap closure was performed utilizing multiple layers of subcuticular Monocryl. The wounds were dressed thoroughly. The patient tolerated the procedure well and returned to recovery room in stable condition. Omar Green MD
[2018-09-01 08:20] VITALS: BP 128/73; PULSE 74; TEMP 98.2; O2SAT 95
[2018-09-01] MEDS: Calcium-Vit D 500 mg-200 Units Tab UD PO SCH (09:40)
[2018-09-01] MEDS: Vitamin B Complex/Vitamin C Tab PO SCH (09:42)
[2018-09-01] MEDS: Multiple Vitamins Tab PO SCH (09:42)
--- NOTE | 2018-09-02 02:55 | CP.PCM.DIS ---
Provider - Provider Date of Admission: 08/26/18 18:03 Attending physician: Jr Couch MD Consults: 08/26/18 17:23 General Surgery Consult Stat Comment: Consulting Provider: Omar Green Consulting Physician: Omar Green Reason for Consult: Right Rectus Sheath Hematoma Time Spent in preparation of Discharge (in minutes): 30 Hospital Course - Lab Results Lab Results: Micro Results 08/29/18 15:33 Abdomen Gram Stain - Final 08/29/18 15:33 Abdomen Wound Culture - Final No growth. 08/28/18 12:12 Other: Please Indicate Gram Stain - Final 08/28/18 12:12 Other: Please Indicate Body Fluid Culture - Final No growth. 08/26/18 20:10 Blood Blood Culture - Final NO GROWTH AFTER 5 DAYS 08/26/18 20:10 Blood Gram Stain - Final TEST NOT PERFORMED 08/26/18 20:10 Blood Blood Culture - Final NO GROWTH AFTER 5 DAYS 08/26/18 20:10 Blood Gram Stain - Final TEST NOT PERFORMED 08/28/18 16:00 Abscess - Abdominal Gram Stain - Final 08/28/18 16:00 Abscess - Abdominal Wound Culture - Final No growth. 08/26/18 13:49 Urine Random Urine Culture - Final No Growth (<1,000 CFU/ML) Most Recent Lab Values WBC 8.2 K/uL (4.8-10.8) 08/30/18 16:27 RBC 3.57 Mil/uL (3.80-5.20) L 08/30/18 16:27 Hgb 11.1 g/dL (11.0-16.0) 08/30/18 16:27 Hct 33.4 % (34.0-47.0) L 08/30/18 16:27 MCV 93.5 fL (81.0-99.0) 08/30/18 16:27 MCH 31.1 pg (27.0-31.0) H 08/30/18 16:27 MCHC 33.3 g/dL (33.0-37.0) 08/30/18 16:27 RDW 13.2 % (11.5-14.5) 08/30/18 16:27 Plt Count 232 K/uL (130-400) 08/30/18 16:27 MPV 7.7 fL (7.2-11.7) 08/30/18 16: Neut % (Auto) 71.5 % (50.0-75.0) 08/30/18 16:27 Lymph % (Auto) 16.3 % (20.0-40.0) L 08/30/18 16:27 [place] % (Auto) 10.1 % (0.0-10.0) H 08/30/18 16:27 Eos % (Auto) 1.7 % (0.0-4.0) 08/30/18 16:27 Baso % (Auto) 0.4 % (0.0-2.0) 08/30/18 16: Neut # (Auto) 5.9 K/uL (1.8-7.0) 08/30/18 16: Lymph # (Auto) 1.3 K/uL (1.0-4.3) 08/30/18 16:27 [place] # (Auto) 0.8 K/uL (0.0-0.8) 08/30/18 16: Eos # (Auto) 0.1 K/uL (0.0-0.7) 08/30/18 16: Baso # (Auto) 0.0 K/uL (0.0-0.2) 08/30/18 16:27 PT 11.9 SECONDS (9.7-12.2) 08/26/18 13:34 INR 1.1 08/26/18 13:34 APTT 29 SECONDS (21-34) 08/26/18 13:34 Sodium 136 mmol/L (132-148) 08/29/18 06:51 Potassium 3.6 mmol/L (3.6-5.2) 08/29/18 06:51 Chloride 103 mmol/L (98-107) 08/29/18 06:51 Carbon Dioxide 28 mmol/L (22-30) 08/29/18 06:51 Anion Gap 9 (10-20) L 08/29/18 06:51 BUN 11 mg/dL (7-17) 08/29/18 06:51 Creatinine 0.6 mg/dL (0.7-1.2) L 08/29/18 06:51 Est GFR ( Amer) > 60 08/29/18 06:51 Est GFR (Non-Af Amer) > 60 08/29/18 06:51 POC Glucose (mg/dL) 180 mg/dL (65-110) H 09/01/18 11:34 Random Glucose 127 mg/dL (65-105) H D 08/29/18 06:51 Calcium 8.1 mg/dl (8.6-10.4) L 08/29/18 06:51 Total Bilirubin 0.6 mg/dL (0.2-1.3) 08/29/18 06:51 AST 25 U/L (14-36) 08/29/18 06:51 ALT 23 U/L (9-52) 08/29/18 06:51 Alkaline Phosphatase 49 U/L (38-126) 08/29/18 06:51 Troponin I < 0.0120 ng/mL (0.00-0.120) 08/26/18 13:34 Total Protein 5.7 g/dL (6.3-8.3) L 08/29/18 06:51 Albumin 3.1 g/dL (3.5-5.0) L D 08/29/18 06:51 Globulin 2.6 gm/dL (2.2-3.9) 08/29/18 06:51 Albumin/Globulin Ratio 1.2 (1.0-2.1) 08/29/18 06:51 Lipase 206 U/L (23-300) 08/26/18 13:34 Urine Color [place] (YELLOW) 08/26/18 13:49 Urine Clarity Hazy (Clear) 08/26/18 13:49 Urine pH 5.0 (5.0-8.0) 08/26/18 13:49 Ur Specific [place] 1.028 (1.003-1.030) 08/26/18 13:49 Urine Protein Negative mg/dL (NEGATIVE) 08/26/18 13:49 Urine Glucose (UA) 3+ mg/dL (Normal) H 08/26/18 13:49 Urine Ketones Trace mg/dL (NEGATIVE) 08/26/18 13:49 Urine Blood Negative (NEGATIVE) 08/26/18 13:49 Urine Nitrate Negative (NEGATIVE) 08/26/18 13:49 Urine Bilirubin Negative (NEGATIVE) 08/26/18 13:49 Urine Urobilinogen Normal mg/dL (0.2-1.0) 08/26/18 13:49 Ur Leukocyte Esterase Neg Michelle/uL (Negative) 08/26/18 13:49 Urine WBC (Auto) < 1 /hpf (0-5) 08/26/18 13:49 Urine RBC (Auto) 1 /hpf (0-3) 08/26/18 13:49 Ur Squamous Epith Cells < 1 /hpf (0-5) 08/26/18 13:49 Blood Type A POSITIVE 08/26/18 20:02 Antibody Screen Negative 08/26/18 20:02 Discharge Plan - Follow Up Plan Condition: STABLE Disposition: HOME/ ROUTINE Instructions: Cefadroxil, Debridement of a Wound or Burn (DC) Referrals: Omar Green MD [Staff Provider] -
== END 2018-09-01 15:35 | disposition home or self-care (01) | DRG 463 ==
LOC: C.ER 11:51 → C.9E 18:03 → C.3T 19:15
PROVIDERS: ADMIT Internal Medicine; ATTEND Internal Medicine
PROC: 0J980ZX Drainage of Abdomen Subcutaneous Tissue and Fascia, Open Approach, Diagnostic (ICD-10-PCS; 2018-08-27)
PROC: 0J9C0ZX Drainage of Pelvic Region Subcutaneous Tissue and Fascia, Open Approach, Diagnostic (ICD-10-PCS; 2018-08-27)
PROC: 06QY0ZZ Repair Lower Vein, Open Approach (ICD-10-PCS; 2018-08-27)
PROC: 0HR7X74 Replacement of Abdomen Skin with Autologous Tissue Substitute, Partial Thickness, External Approach (ICD-10-PCS; principal; 2018-08-27 15:30)
PROC: 0W9H0ZZ Drainage of Retroperitoneum, Open Approach (ICD-10-PCS; 2018-08-28)
PROC: 0HX7XZZ Transfer Abdomen Skin, External Approach (ICD-10-PCS; 2018-08-28)
PROC: 06QY0ZZ Repair Lower Vein, Open Approach (ICD-10-PCS; 2018-08-28)
PROC: 0J9C0ZZ Drainage of Pelvic Region Subcutaneous Tissue and Fascia, Open Approach (ICD-10-PCS; 2018-08-30)
PROC: 0HX7XZZ Transfer Abdomen Skin, External Approach (ICD-10-PCS; 2018-08-30)
DX: M79.81 Nontraumatic hematoma of soft tissue (principal); K66.1 Hemoperitoneum; N94.89 Other specified conditions associated with female genital organs and menstrual cycle; I10 Essential (primary) hypertension; E11.9 Type 2 diabetes mellitus without complications; E78.5 Hyperlipidemia, unspecified; G47.00 Insomnia, unspecified

== ENCOUNTER 2018-09-11 09:33 | Outpatient (CLI) | payer BC | END 2018-09-11 09:34 | disposition home or self-care (01) | LOC: C.CTH 09:33 | DX: K68.9 Other disorders of retroperitoneum (principal) ==